=== PATIENT | female | born 1960 | race Caucasian/White ===

== ENCOUNTER 2017-10-31 20:37 | Emergency (ER) | payer MEDICAID ==
[~2017-10-31] VITALS: Ht 149.9 cm; Wt 56.7 kg
--- NOTE | 2017-10-31 20:50 | NUR ---
PT [facility] FAMILY STATING "I FELL WALKING DOGS AND MY HEEL/NECK HURT" 06/18, NAD NOTED, VSS, RESP EVEN AND UNLABORED, PT PUT ON MONITOR, WAITING FOR MD GALEANA.
[2017-10-31] MEDS ORDERED: HYDROCODONE/APAP 5/325MG 1 EACH TABLET ONE (21:30)
[2017-10-31] MEDS ORDERED: HYDROCODONE/APAP 5/325MG 1 EACH TABLET PO ONE (21:30)
[2017-10-31 22:41] VITALS: BP 125/80
--- NOTE | 2017-10-31 22:42 | NUR ---
Patient discharged to home in stable condition. Prescription given.
== END 2017-10-31 22:42 | disposition home or self-care (01) ==
LOC: ER 20:44
DX: S93.401A Sprain of unspecified ligament of right ankle, initial encounter (principal); I10 Essential (primary) hypertension; M72.2 Plantar fascial fibromatosis; Z86.74 Personal history of sudden cardiac arrest; Z88.0 Allergy status to penicillin; W01.0XXA Fall on same level from slipping, tripping and stumbling without subsequent striking against object, initial encounter; Y93.K1 Activity, walking an animal; Y92.89 Other specified places as the place of occurrence of the external cause; Y99.8 Other external cause status
CPT/HCPCS: 73610-TC; A4606; Z7610

== ENCOUNTER 2017-11-05 14:44 | Inpatient (IN) | payer MEDICAID, OTHER ==
[~2017-11-05] VITALS: Ht 149.9 cm; Wt 61.7 kg
[2017-11-05 15:29] LABS: BASOPHILS # (AUTO) 0.2 /CMM (0.0-0.2); BASOPHILS % (AUTO) 1.6 % (0.0-2.0); EOSINOPHILS # (AUTO) 0.3 /CMM (0.0-0.7); EOSINOPHILS % (AUTO) 2.1 % (0.0-6.0); HEMATOCRIT 39 % (33-45); HEMOGLOBIN 13.1 g/dL (11.5-14.8); LYMPHOCYTES % (AUTO) 13.3 % (20.0-44.0); MEAN CORPUSCULAR HEMOGLOBIN 28 PG (26.0-33.0); MEAN CORPUSCULAR HGB CONC 33 g/dl (31.0-36.0); MEAN CORPUSCULAR VOLUME 83 fL (82-100); MONOCYTES # (AUTO) 1.1 /CMM (0.1-1.30); MONOCYTES % (AUTO) 7.2 % (2.0-12.0); NEUTROPHILS # (AUTO) 11.4 /CMM (1.8-8.9); NEUTROPHILS % (AUTO) 75.8 % (43.0-81.0); PLATELET COUNT (AUTO) 171 /CMM (150-450); RDW COEFFICIENT OF VARIATION 13.6 (11.5-15.0); RED BLOOD CELL COUNT(AUTO) 4.75 MIL/uL (4.0-5.2)
[2017-11-05 15:45] LABS: CALCIUM, SERUM 10.4 mg/dL (8.5-10.1); CREATININE 1.7 mg/dL (0.6-1.3)
[2017-11-05 15:52] LABS: TROPONIN I 0.043 ng/mL (0.00-0.056)
[2017-11-05 16:03] LABS: INR 0.9 (0.85-1.15)
[2017-11-05] MEDS ORDERED: IV NS 0.9% 1,000 ML IV PRN (17:41)
[2017-11-05] MEDS ORDERED: ONDANSETRON HCL/PF 4 MG/2 ML VIAL IVP PRN (18:00)
[2017-11-05] MEDS ORDERED: Z GUARD REMEDY 2 OZ OINT TP PRN (18:00)
[2017-11-05] MEDS ORDERED: MAG HYDROX/AL HYDROX/SIMETH 30 ML UDC PO PRN (18:00)
[2017-11-05] MEDS ORDERED: ZOLPIDEM TARTRATE 5 MG TABLET PO PRN (18:00)
[2017-11-05] MEDS ORDERED: ENOXAPARIN SODIUM 30 MG/0.3 ML DISP.SYRIN SQ SCH (18:00)
[2017-11-05] MEDS ORDERED: MAGNESIUM HYDROXIDE 30 ML UDC PO PRN (18:00)
[2017-11-05] MEDS ORDERED: ACETAMINOPHEN 325 MG TABLET PO PRN (18:00)
[2017-11-05] MEDS ORDERED: ISOS60TA4 PO (18:53)
[2017-11-05] MEDS ORDERED: SPIR50TA3 PO (18:53)
[2017-11-05] MEDS ORDERED: METO50TA16 PO (18:53)
[2017-11-05] MEDS ORDERED: LEVE500T9 PO (18:53)
[2017-11-05] MEDS ORDERED: CLON0.3T PO (18:53)
[2017-11-05] MEDS ORDERED: LEVO150T8 PO (18:53)
[2017-11-05] MEDS ORDERED: TERA10CA4 PO (18:53)
[2017-11-05] MEDS ORDERED: ESTR0.5T PO (18:53)
[2017-11-05] MEDS ORDERED: FLUT200B IH (18:53)
[2017-11-05] MEDS ORDERED: CLON2TAB4 PO (18:53)
[2017-11-05 20:50] VITALS: BP 151/78
[2017-11-05] MEDS ORDERED: ENOXAPARIN SODIUM 30 MG/0.3 ML DISP.SYRIN ONE (21:52)
[2017-11-05] MEDS ORDERED: PANTOPRAZOLE 40 MG TABLET.DR PO ONE (21:54)
[2017-11-05] MEDS ORDERED: HYDROCODONE/APAP 5/325MG 1 EACH TABLET ONE (21:54)
[2017-11-05] MEDS: PANTOPRAZOLE 40 MG TABLET.DR PO SCH (22:02)
[2017-11-05] MEDS: HYDROCODONE/APAP 5/325MG 1 EACH TABLET PO PRN (22:02)
[2017-11-06] VITALS: BP 130/93
[2017-11-06] MEDS ORDERED: clonazePAM 1 MG TABLET PO SCH ×2 (00:30→09:00)
[2017-11-06] MEDS ORDERED: TERAZOSIN HCL 5 MG CAPSULE PO SCH (00:30)
[2017-11-06] MEDS ORDERED: LEVETIRACETAM (250 MG) 250 MG TABLET PO SCH ×2 (00:30→22:00)
[2017-11-06] MEDS ORDERED: clonazePAM 1 MG TABLET ONE (00:32)
[2017-11-06] MEDS ORDERED: LEVETIRACETAM (250 MG) 250 MG TABLET PO ONE (00:33)
[2017-11-06] MEDS ORDERED: TERAZOSIN HCL 5 MG CAPSULE ONE (00:35)
[2017-11-06] MEDS ORDERED: ZOLPIDEM TARTRATE 5 MG TABLET ONE (01:29)
[2017-11-06 04:00] VITALS: BP 150/93
[2017-11-06 06:54] LABS: BASOPHILS % (AUTO) 0.2 % (0.0-2.0); EOSINOPHILS # (AUTO) 0.3 /CMM (0.0-0.7); EOSINOPHILS % (AUTO) 3.3 % (0.0-6.0); HEMATOCRIT 37 % (33-45); HEMOGLOBIN 12.5 g/dL (11.5-14.8); LYMPHOCYTES # (AUTO) 1.5 /CMM (0.8-4.8); LYMPHOCYTES % (AUTO) 19.1 % (20.0-44.0); MEAN CORPUSCULAR HEMOGLOBIN 28 PG (26.0-33.0); MEAN CORPUSCULAR HGB CONC 34 g/dl (31.0-36.0); MEAN CORPUSCULAR VOLUME 83 fL (82-100); MONOCYTES # (AUTO) 0.8 /CMM (0.1-1.30); MONOCYTES % (AUTO) 9.8 % (2.0-12.0); NEUTROPHILS # (AUTO) 5.2 /CMM (1.8-8.9); NEUTROPHILS % (AUTO) 67.6 % (43.0-81.0); PLATELET COUNT (AUTO) 201 /CMM (150-450); RDW COEFFICIENT OF VARIATION 13.8 (11.5-15.0); RED BLOOD CELL COUNT(AUTO) 4.44 MIL/uL (4.0-5.2); WHITE BLOOD COUNT (AUTO) 7.8 K/uL (4.3-11.0)
[2017-11-06 07:05] LABS: CALCIUM, SERUM 10.2 mg/dL (8.5-10.1); CREATININE 1.5 mg/dL (0.6-1.3); MAGNESIUM 2.1 mg/dL (1.8-2.4); PHOSPHORUS 3.7 mg/dL (2.5-4.9); POTASSIUM 4.7 mmol/L (3.5-5.1)
[2017-11-06 08:00] VITALS: BP 159/74
[2017-11-06 08:25] LABS: CHOLESTEROL 173 mg/dL (<200); FERRITIN 140 ng/mL (8-388); HDL CHOLESTEROL 39 mg/dL (40-60); LDL 116 mg/dL (0-99); THYROID STIMULATING HORMONE < 0.007 uIU/mL (0.358-3.74); TRIGLYCERIDES 121 mg/dL (30-150)
[2017-11-06 08:28] LABS: IRON, SERUM 81 ug/dl (50-175); TOTAL IRON BINDING CAPACITY 281 ug/dl (250-450)
[2017-11-06 08:46] LABS: ALANINE AMINOTRANSFERASE 20 U/L (12-78); ALBUMIN 3.5 g/dL (3.4-5.0); ALKALINE PHOSPHATASE 89 U/L (46-116); ASPARTATE AMINOTRANSFERASE 25 U/L (15-37); BILIRUBIN,TOTAL 0.4 mg/dL (0.2-1.0); TOTAL PROTEIN, SERUM 7.3 g/dL (6.4-8.2)
[2017-11-06 08:53] LABS: TROPONIN I 0.077 ng/mL (0.00-0.056)
[2017-11-06 09:00] LABS: BILIRUBIN,DIRECT 0.1 mg/dL (0.0-0.2)
[2017-11-06] MEDS ORDERED: Medication Not On Formulary EA (Levetiracetam (Keppra) 500 MG) PO SCH (09:00)
[2017-11-06] MEDS ORDERED: FLUTICASONE FUROATE 200 MCG IH SCH (09:00)
[2017-11-06] MEDS ORDERED: ASPIRIN 325 MG TABLET PO SCH (09:00)
[2017-11-06] MEDS ORDERED: Medication Not On Formulary EA (Estradiol 0.5 MG) PO SCH (09:00)
[2017-11-06] MEDS ORDERED: LEVOTHYROXINE SODIUM 75 MCG TABLET PO SCH (09:16)
[2017-11-06] MEDS ORDERED: ISOSORBIDE MONONITRATE (30MG) 30 MG TAB.SR.24H PO SCH (09:20)
[2017-11-06] MEDS ORDERED: REGADENOSON 0.4 MG/5 ML DISP.SYRIN IVP ONE (10:00)
[2017-11-06] MEDS: METOPROLOL TARTRATE 50 MG TABLET PO SCH ×2 (10:20→16:43)
[2017-11-06] MEDS: PANTOPRAZOLE 40 MG TABLET.DR PO SCH (10:21)
[2017-11-06] MEDS ORDERED: ESTRADIOL 1 MG TABLET PO SCH (11:00)
[2017-11-06 16:00] VITALS: BP 118/83
[2017-11-06 16:43] VITALS: BP 118/83
[2017-11-06] MEDS: HYDROCODONE/APAP 5/325MG 1 EACH TABLET PO PRN (16:45)
[2017-11-06] MEDS ORDERED: ENOXAPARIN SODIUM 30 MG/0.3 ML DISP.SYRIN SQ SCH (21:00)
[2017-11-07] MEDS ORDERED: SPIRONOLACTONE 50 MG TABLET PO SCH (09:00)
== END 2017-11-06 18:45 | disposition home or self-care (01) | DRG 204 ==
LOC: ER 14:50 → TELE 20:09 → MED 11-06 09:25
PROVIDERS: ADMIT Internal Medicine; ATTEND Internal Medicine
DX: R07.81 Pleurodynia (principal); N17.0 Acute kidney failure with tubular necrosis; R65.10 Systemic inflammatory response syndrome (SIRS) of non-infectious origin without acute organ dysfunction; I11.0 Hypertensive heart disease with heart failure; Z86.74 Personal history of sudden cardiac arrest; E83.52 Hypercalcemia; I50.9 Heart failure, unspecified; E86.0 Dehydration; Z95.810 Presence of automatic (implantable) cardiac defibrillator; Z79.899 Other long term (current) drug therapy; D35.00 Benign neoplasm of unspecified adrenal gland; Z88.0 Allergy status to penicillin
CPT/HCPCS: 36415; 71045-TC; 80048-TC; 80061-TC; 80076-TC; 82306; 82728-TC; 83540-TC; 83735-TC; 84100-TC; 84439-TC; 84443-TC; 84484-TC; 85025-TC; 85652-TC; 85730-TC; 87081-TC; 93307-TC; A4606; A9502; J1650; J2785; J7030; Z7610

== ENCOUNTER 2018-04-24 02:03 | Emergency (ER) | payer MEDICAID ==
[~2018-04-24] VITALS: Ht 149.9 cm; Wt 55.3 kg
[~2018-04-24 02:03] MED LIST: CLON0.3T PO; CLON2TAB11 PO; ESTR0.5T PO; FLUT200B IH; ISOS60TA4 PO; LEVE500T9 PO; LEVO150T8 PO; METO50TA16 PO; SPIR50TA5 PO; TERA10CA4 PO
--- NOTE | 2018-04-24 02:15 | NUR ---
pt bibself c/o left toe pain for the past 2days s/p stubbing her toe, feels worse when laying down. vs stable. pt in bed being seen by md. will cont to monitor.
--- NOTE | 2018-04-24 02:18 | NUR ---
xr of left foot taken at beside.
[2018-04-24 02:30] VITALS: BP 130/88
[2018-04-24] MEDS ORDERED: IBUPROFEN 600 MG TABLET PO ONE ×2 (04:00→04:06)
--- NOTE | 2018-04-24 04:10 | NUR ---
PATIENT REFUSING MOTRIN. PER PATIENT, SHE WILL HAVE "ADRENAL GLAND SURGERY IN THE NEAR FUTURE." DR ARROYO MADE AWARE
== END 2018-04-24 05:03 | disposition home or self-care (01) ==
LOC: ER 02:03
DX: S90.122A Contusion of left lesser toe(s) without damage to nail, initial encounter (principal); I10 Essential (primary) hypertension; R56.9 Unspecified convulsions; E03.9 Hypothyroidism, unspecified; F17.200 Nicotine dependence, unspecified, uncomplicated; Z95.810 Presence of automatic (implantable) cardiac defibrillator; Z88.0 Allergy status to penicillin; Z79.899 Other long term (current) drug therapy; W22.03XA Walked into furniture, initial encounter; Y93.89 Activity, other specified; Y92.098 Other place in other non-institutional residence as the place of occurrence of the external cause; Y99.8 Other external cause status; Z86.74 Personal history of sudden cardiac arrest
CPT/HCPCS: 73660; 99284; A4606; Z7610